=== PATIENT | female | born 1985 | race Caucasian/White ===

== ENCOUNTER 2016-11-26 20:42 | Emergency (ER) | payer MEDICAID ==
[~2016-11-26] VITALS: Ht 157.5 cm; Wt 61.5 kg
[~2016-11-26 20:42] MED LIST: IBUP-1542 PO; PREN1TAB79 PO
[2016-11-26 20:44] VITALS: Ht 157.5 cm; Wt 61.5 kg
[2016-11-26] MEDS ORDERED: ONDANSETRON 4 MG INJ IV STA ×2 (21:19→21:39)
[2016-11-26] MEDS ORDERED: SOD CHLORIDE 0.9% 1,000 ML IV STA (21:19)
[2016-11-26] MEDS ORDERED: morphine 4 MG/ML VIAL ONE (21:28)
[2016-11-26 21:31] LABS: HEMATOCRIT 44.5 % (37.0-47.0); HEMOGLOBIN 14.8 g/dl (12.0-16.0); MEAN CORPUSCULAR HEMOGLOBIN 30.7 pg (29.0-33.0); MEAN CORPUSCULAR HGB CONC 33.3 g/dl (32.0-37.0); MEAN CORPUSCULAR VOLUME 92.2 fl (82.0-101.0); MEAN PLATELET VOLUME 7.3 fl (7.4-10.4); PLATELET COUNT 319 10^3/UL (140-440); RED BLOOD COUNT 4.82 10^6/ul (4.20-5.40); UNCORRECTED WBC 9.1 10^3/ul (4.8-10.8); WHITE BLOOD COUNT 9.1 10^3/ul (4.8-10.8)
[2016-11-26 21:35] LABS: CONDITION 1; INR 0.97; LH ANALYZER COMMENTS 1; PROTIME 12.9 Sec (12.2-14.2)
[2016-11-26 21:36] LABS: PARTIAL THROMBOPLASTIN TIME 30.5 Sec (25.0-35.0)
[2016-11-26] MEDS ORDERED: morphine 4 MG/ML VIAL IV STA (21:39)
[2016-11-26 21:41] LABS: ADD UMIC YES; URINE BILIRUBIN (Dip) NEGATIVE (NEGATIVE); URINE BLOOD (Dip) 3+ (NEGATIVE); URINE GLUCOSE (Dip) NEGATIVE (NEGATIVE); URINE KETONES (Dip) NEGATIVE (NEGATIVE); URINE LEUKOCYTE ESTERASE (Dip) NEGATIVE (NEGATIVE); URINE NITRITE (Dip) NEGATIVE (NEGATIVE); URINE TOTAL PROTEIN (Dip) NEGATIVE (NEGATIVE); URINE UROBILINOGEN (Dip) 0.2 E.U./dL (0.1-1.0)
[2016-11-26 21:42] LABS: URINE COLOR PALE RED (YELLOW)
[2016-11-26 21:55] LABS: BACTERIA,URINE RARE; SQUAMOUS EPITHELIAL CELL,UR RARE
[2016-11-26 22:17] LABS: ALBUMIN 4.2 g/dl (3.3-4.9)
[2016-11-26 22:18] LABS: POTASSIUM 3.6 mmol/L (3.5-5.1)
[2016-11-26 22:20] LABS: ALBUMIN/GLOBULIN RATIO 1.1; BILIRUBIN,INDIRECT 0.1 mg/dl (0-1.1); BILIRUBIN,TOTAL 0.1 mg/dl (0.2-1.3); CREATININE 0.9 mg/dl (0.44-1.00)
[2016-11-26 22:21] LABS: CALCIUM 8.9 mg/dl (8.4-10.2)
[2016-11-26 22:50] LABS: EOSINOPHILS # 2.3 10^3/ul (0.0-0.5); LYMPHOCYTES # 2.2 10^3/ul (0.8-2.9); MONOCYTE # 0.3 10^3/ul (0.3-0.9); NEUTROPHIL # 4.4 10^3/ul (1.6-7.5)
[2016-11-26 22:51] LABS: PLATELET ESTIMATE PLT APPEAR ADEQUATE
--- NOTE | 2016-11-26 23:14 | RADRPT ---
PROCEDURE: Ultrasound of the pelvis. CLINICAL INDICATION: Pain TECHNIQUE: Transabdominal ultrasound of the pelvis was performed to better evaluate the pelvic vis cera. COMPARISON: No pertinent prior examinations were submitted for comparison. FINDINGS: LAST MENSTRUAL PERIOD: Unavailable UTERUS: Size: 9.8 x 4.6 x 6.9 cm. The uterine texture is homogeneous. The endometrium measures 3.9 mm which is within normal limits. RIGHT OVARY: The ovary is not visualized. No adnexal masses are seen. LEFT OVARY: The ovary is not visualized. No adnexal masses are seen. CUL-DE-SAC: There is no abnormal free fluid. IMPRESSION: Normal endometrium. No endometrial vascularity to suggest retained products of conception. RPTAT: HIKT .Carlitos Andrea MD, Date Time Electronically viewed and signed by .Carlitos Andrea MD, on 11/26/2016 23:13 .T/
[2016-11-26] MEDS ORDERED: HYDROmorphONE 1 MG/ML SYG IV STA (23:47)
--- NOTE | 2016-11-27 02:04 | RADRPT ---
PROCEDURE: CT Abdomen and pelvis without contrast. CLINICAL INDICATION: Abdominal pain. TECHNIQUE: CT scan of the abdomen and pelvis was performed on the [employer] LightSpeTake5 6 4 slice VCT scanner. Contiguous axial images using 2.5 mm slice thickness were obtained from the sarina ng bases to the ischial tuberosities without intravenous contrast. Coronal and sagittal reformatted images were also obtained. Images were reviewed on the PACS workstation. Exam CTD/vol = 8.94 mGy. Total exam DLP = 489.10 mGy-cm. COMPARISON: None. FINDINGS: Evaluation of the lung bases demonstrates no pleural or parenchymal disease. Abdomen: The liver is normal in size. There is no focal mass or dilatation of the biliary tree. T he gallbladder is not distended. The spleen, pancreas and bilateral adrenal glands are within darrel l limits. Bilateral kidneys are normal in size with no contour deforming mass identified. There is no radiopaque renal or ureteral calculus identified. There is no hydronephrosis or hydroureter. T here is no retroperitoneal adenopathy. The abdominal aorta is of normal caliber. There is no abnormal bowel wall thickening or distension. There is no bowel obstruction or free air . The appendix is not visualized. There are no pericecal inflammatory changes to suggest appendici tis. There is no diverticulosis or diverticulitis. There is no ascites. Pelvis: The bladder is unremarkable. The uterus and adnexa are within normal limits. There is no significant pelvic adenopathy or free fluid. Evaluation of the osseous structures demonstrates no suspicious lytic or blastic lesion. IMPRESSION: No acute abnormality identified within the abdomen and pelvis. .Timbo Plaza MD, MD Date Time Electronically viewed and signed by .Timbo Plzaa MD, MD on 11/27/2016 02:04 .T/
[2016-11-27] MEDS ORDERED: ORTNOV PO (02:13)
[2016-11-27 02:48] VITALS: BP 115/78; PULSE 62; RESP 17; TEMP 98.1
--- NOTE | 2016-11-27 03:23 | ERD ---
ER Documentation Chief Complaint Date/Time DATE: 11/27/16 TIME: 03:20 Chief Complaint C/O INCREASING VAGINAL BLEED TODAY S/P DELIVERY 28 DAYS AGO HPI Patient is a 30-year-old female with no medical problems who presents with vaginal bleeding. She has had vaginal bleeding for 1 hour prior to arrival. She had her baby 3 weeks ago by vaginal delivery. She was complaining of pelvic pain as well. She has had no treatment as of yet. Her OB doctor is Dr. Lou. ROS All systems reviewed and are negative except as per history of present illness. Medications Home Meds Active Scripts Norethindrone-Ethinyl Estradiol (Ortho-Novum ()) 0.035-1 Mg Tablet, 1 TAB PO DAILY for 28 Days, #28 TAB Prov:SABINE LEDEZMA MD 11/27/16 Ibuprofen* (Ibuprofen*) 600 Mg Tablet, 600 MG PO Q6, #20 TAB 0 Refills Prov:BRENDEN MIRAMONTES MD 11/02/16 Reported Medications Vit W-Ca,Fe,FA(<1 mg) ( Vitamins) 1 Each Tablet, 1 EACH PO DAILY, TAB 10/26/16 Allergies Allergies: Coded Allergies: No Known Drug Allergy (Verified Allergy, Unknown, 11/26/16) PMhx/Soc Medical and Surgical Hx: pt denies Medical Hx, pt denies Surgical Hx Hx Alcohol Use: No Hx Substance Use: No Hx Tobacco Use: No Smoking Status: Never smoker FmHx Family History: No diabetes Physical Exam Vitals Vital Signs Date Time Temp Pulse Resp B/P Pulse Ox O2 Delivery O2 Flow Rate FiO2 11/27/16 02:48 98.1 62 17 115/78 96 Room Air 11/27/16 00:21 97.9 68 16 122/88 99 Room Air 11/26/16 23:00 97.8 60 18 103/61 99 Room Air 11/26/16 22:00 97.0 67 18 103/69 99 Room Air 11/26/16 20:44 97.0 75 18 187/84 99 Physical Exam Const: Mild distress secondary to pain Head: Atraumatic Eyes: Normal Conjunctiva ENT: Normal External Ears, Nose and Mouth. Neck: Full range of motion..~ No meningismus. Resp: Clear to auscultation bilaterally Cardio: Regular rate and rhythm, no murmurs Abd: Soft, lower pelvic pain Skin: No petechiae or rashes Back: No midline or flank tenderness Ext: No cyanosis, or edema, no leg swelling bilaterally Neur: Awake and alert : Pelvic exam shows mild dark blood without active bleeding at this time, no signs of lacerations Result Diagram: 11/26/16211111/26/162111 Results 24 hrs Laboratory Tests Test 11/26/16 21:12 11/26/16 21:32 Activated Partial Thromboplast Time 30.5Sec Alanine Aminotransferase (ALT/SGPT) 28IU/L Albumin 4.2g/dl Albumin/Globulin Ratio 1.10 Alkaline Phosphatase 145IU/L Anion Gap 19 Aspartate Amino Transf (AST/SGOT) 25IU/L Basophils # 10^3/ul Basophils % % Blood Morphology Comment Blood Urea Nitrogen 19mg/dl Calcium Level 8.9mg/dl Carbon Dioxide Level 23mmol/L Chloride Level 108mmol/L Creatinine 0.90mg/dl Differential Comment Y Direct Bilirubin 0.00mg/dl Eosinophils # 2.310^3/ul Eosinophils % 25.0% Globulin 3.80g/dl Glucose Level 90mg/dl Hematocrit 44.5% Hemoglobin 14.8g/dl INR International Normalized Ratio 0.97 Indirect Bilirubin 0.1mg/dl Lymphocytes # 2.210^3/ul Lymphocytes % 24.0% Mean Corpuscular Hemoglobin 30.7pg Mean Corpuscular Hemoglobin Concent 33.3g/dl Mean Corpuscular Volume 92.2fl Mean Platelet Volume 7.3fl Monocytes # 0.310^3/ul Monocytes % 3.0% Neutrophils # 4.410^3/ul Neutrophils % 48.0% Nucleated Red Blood Cells # 10^3/ul Nucleated Red Blood Cells % 0.0/100WBC Platelet Count 67739^3/UL Platelet Estimate PLT APPEAR ADEQUATE Potassium Level 3.6mmol/L Prothrombin Time 12.9Sec Prothrombin Time Ratio 1.0 Red Blood Count 4.8210^6/ul Red Cell Distribution Width 13.0% Sodium Level 146mmol/L Total Bilirubin 0.1mg/dl Total Protein 8.0g/dl White Blood Count 9.110^3/ul Urine Bacteria RARE Urine Bilirubin NEGATIVE Urine Clarity CLEAR Urine Color PALE RED Urine Glucose NEGATIVE% Urine Hemoglobin 3+ Urine Ketones NEGATIVE Urine Leukocyte Esterase NEGATIVE Urine Microscopic RBC 10-25/HPF Urine Microscopic WBC 0-2/HPF Urine Nitrite NEGATIVE Urine Specific [place] <=1.005 Urine Squamous Epithelial Cells RARE Urine Total Protein NEGATIVE Urine Urobilinogen 0.2 E.U./dL Urine pH 6.5 Current Medications Medications (Trade) Dose Ordered Sig/Sofia Route PRN Reason Start Time Stop Time Status Last Admin Dose Admin Sodium Chloride (NS) 1,000 ml @ 1,000 mls/hr Q1H STAT IV 11/26/16 21:19 11/26/16 22:18 DC 11/26/16 21:54 Ondansetron HCl (Zofran Inj) 4 mg ONCE STAT IV 11/26/16 21:19 11/26/16 21:21 DC 11/26/16 21:43 Morphine Sulfate (morphine) 4 mg STK-MED ONCE .ROUTE 11/26/16 21:28 11/26/16 21:29 DC Morphine Sulfate (morphine) 4 mg ONCE STAT IV 11/26/16 21:39 11/26/16 21:41 DC 11/26/16 21:44 Ondansetron HCl (Zofran Inj) 4 mg ONCE STAT IV 11/26/16 21:39 11/26/16 21:41 DC Hydromorphone HCl (Dilaudid) 1 mg ONCE STAT IV 11/26/16 23:47 11/26/16 23:48 DC 11/26/16 23:56 Procedures/MDM CT scan shows no abnormalities per radiology. Ultrasound of the pelvis shows no retained products of conception per radiology. Patient is a 30-year-old female presents with vaginal bleeding and pelvic pain. She had a full workup including laboratory studies, CT scan, and ultrasound of the pelvis. Her initial blood pressure was elevated but I believe this was an error as all repeat blood pressures were less than 120 systolic. I do not think the patient has preeclampsia or eclampsia. I doubt retained products of conception. I doubt appendicitis, cholecystitis, pancreatitis, or bowel obstruction. At this point I believe outpatient management is appropriate. I believe the patient has dysfunctional uterine bleeding. She will be given a prescription for Ortho-Novum and can return if symptoms worsen. At this point I believe outpatient management is appropriate. She should follow-up with Dr. Lou within 24-48 hours for reevaluation. Departure Diagnosis: Primary Impression: Vaginal bleeding Condition: Fair Patient Instructions: Dysfunctional Uterine Bleeding Referrals: BRENDEN MIRAMONTES MD Additional Instructions: Visite a alexis mdico jannana para un EXAMEN.Regrese a estas instalaciones si no se mejora renee esperbamos o renee le dijimos. SABINE LEDEZMA MD Nov 27, 2016 03:23
== END 2016-11-27 02:48 | disposition home or self-care (01) ==
LOC: E/R 20:42
DX: O72.2 Delayed and secondary postpartum hemorrhage (principal); O90.89 Other complications of the puerperium, not elsewhere classified; R10.2 Pelvic and perineal pain
CPT/HCPCS: 36415; 74176; 76856; 80053; 81001; 85025; 85610; 85730; 86850; 86900; 86901; 96374; 96375; J1170; J2270; J2405; J7030; Z7502; 81003